=== PATIENT | male | born 1950 | race Caucasian/White ===

== ENCOUNTER 2018-12-25 14:41 | Observation (INO) | payer MEDICARE, SELFPAY ==
[~2018-12-25 14:41] MED LIST: ISOVUE-370 76%-LOCM 1 ML ONE
--- NOTE | 2018-12-25 15:00 | CT ---
CT Brain WO Con History: [Stroke alert] Comparison: None. Findings: Subtle hypodensity anterior limb right internal capsule is small measures approximately 5 m m. No hemorrhage. No large volume territorial infarction. No midline shift or mass effect. The calvarium is intact. The paranasal sinuses and mastoids are clear. Impression: Age-indeterminate small hypodensity anterior limb right internal capsule is age indetermi nant for infarct. MRI may be beneficial if clinically warranted.
[2018-12-25 15:02] LABS: #Eosinphils 0.1 thou/uL (0.0-0.7); #Lymphocytes 1.1 thou/uL (1.20-3.40); #Monocytes 0.3 thou/uL (0.11-0.59); #Neutrophils 2.5 thou/uL (1.40-6.50); %Basophils 0.3 % (0.0-1.0); %Eosinophils 2.2 % (0.0-10.0); %Lymphocytes 27.2 % (21.0-51.0); %Monocytes 6.4 % (0.0-10.0); Hemoglobin 14.7 g/dL (14.0-18.0); Mean Corpuscular HGB CONC 32.5 g/dL (32.0-36.0); Mean Corpuscular Hemoglobin 30.5 pg (27.0-31.0); Mean Corpuscular Volume 93.8 fL (78.0-98.0); Mean Platelet Volume 8.5 fL (7.4-10.4); Platelet Count 173 thou/uL (130-400); RBC Distribution Width 12.2 % (11.5-14.5); Red Blood Cell (RBC) Count 4.84 mill/uL (4.70-6.10)
[2018-12-25 15:07] LABS: INR-International Normal Ratio 1.1; PTT 29.7 SEC (22.9-36.1); Prothrombin Time 14.3 SEC (12.0-14.7)
[2018-12-25 15:15] LABS: ALT (SGPT) Less than 7 U/L (8-55); AST (SGOT) 23 U/L (5-34); Albumin 4.3 g/dL (3.4-4.8); Alkaline Phosphatase 60 U/L (40-150); Anion Gap 12 mmol/L (10-20); BUN (Urea Nitrogen) 12 mg/dL (8.4-25.7); CK (CPK) 228 U/L (30-200); Calc. Creatinine Clearance 0 mL/min (70-130); Calcium 9.4 mg/dL (7.8-10.44); Carbon Dioxide 26 mmol/L (23-31); Chloride 105 mmol/L (98-107); Estimated GFR-MDRD 82; Globulin 2.5 g/dL (2.4-3.5); Glucose 121 mg/dL (80-115); Potassium 3.6 mmol/L (3.5-5.1); Protein, Total 6.8 g/dL (5.8-8.1); Sodium 139 mmol/L (136-145)
--- NOTE | 2018-12-25 15:20 | CT ---
CTA Angio Head W WO Con History: [Stroke alert. Left-sided face tingling in left arm numbness] Comparison: None. Findings: CT angiogram of the head and neck was performed after the intravenous ministration of contr ast. 3-D rendering was provided. The lung apices are clear. Visualized portion of the aorta is nondilated. The thyroid is unremarkable . Moderate degenerative changes throughout the cervical spine. Vessels: The left vertebral artery is dominant. No significant stenosis of the vertebral arteries. Common carotid arteries are patent. No hemodynamically significant stenosis of the internal carotid a rteries per NASCET criteria. [place] is patent. Right P1 is fed by the posterior communicating artery MCAs and ACAs are p atent. No aneurysm. There is a focal 75% narrowing left into branch distal to the trifurcation with adequate distal flow. This is best seen on coronal image 44 Impression: Single focal left M2 75% narrowing coronal image 44. No aneurysm formation. No occlusion. Adequate distal left MCA flow.
[2018-12-25] MEDS ORDERED: Aspirin Chewable 81 MG TAB ONE (16:10)
[2018-12-25] MEDS ORDERED: Acetaminophen 650 MG Suppository PR PRN (18:21)
[2018-12-25] MEDS ORDERED: Ondansetron PF 4 MG/2 ML Vial IVP PRN (18:21)
[2018-12-25] MEDS ORDERED: Senokot S 8.6-50 MG TAB PO PRN (18:21)
[2018-12-25] MEDS ORDERED: Ondansetron ODT 4 MG TAB PO PRN (18:21)
[2018-12-25] MEDS ORDERED: Acetaminophen 325 MG TAB PO PRN (18:21)
--- NOTE | 2018-12-25 23:12 | HP ---
This is HIRAM Olvera dictating a report for Dorcas Wall MD. CHIEF COMPLAINT: Left facial numbness and tingling. 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 He was building a fence at the time that it started. He reports having a right frontal headache on and off for the last couple of days. Reports having some blurred vision earlier today, which has resolved. His symptoms have fully resolved. He reports having some issues with his speech, which he describes as slurring at baseline due to his Parkinson's, but has not noted any facial drooping or facial weakness. No upper or lower extremity weakness. No gait disturbances. He did not have any severe headache today, but does report the previous episodes of headaches in the last few days were worse with sneezing or coughing. He denies having any chest pain, palpitations, or shortness of breath. No recent fevers, chills, or sweats. REVIEW OF SYSTEMS: All other review of systems apart from those mentioned above in HPI are negative. In the ED, he was given 325 mg of aspirin. He underwent a CT of the head, which showed an age indeterminate small hypodensity anterior limb right internal capsule. CT angiogram of the head and neck was notable for single focal left M2 75% narrowing. No aneurysm formation. No occlusion. Adequate distal left MCA flow. Common carotid arteries are patent without any hemodynamically significant stenosis of the internal carotid arteries. PAST MEDICAL HISTORY: 1. Bradycardia for the last several years. 2. Osteoarthritis. 3. Parkinson's disease. 4. Hyperlipidemia. PAST SURGICAL HISTORY: 1. Colonoscopy. 2. Hernia repair in 2005. 3. Orthopedic surgery of the right and left ACL. 4. Left total knee replacement. 5. Lumbar spine surgery. SOCIAL HISTORY: Patient denies any alcohol use, tobacco use, or illicit drug use. He lives at home with his . He is able to mobilize independently, but does have the typical Parkinson's gait. Does not require any assistive devices. ALLERGIES: NO KNOWN DRUG ALLERGIES. CURRENT MEDICATIONS: 1. Azilect. 2. Ropinirole. 3. Carbidopa/levodopa. 4. Tamsulosin. 5. Finasteride. 6. Lipitor. PHYSICAL EXAMINATION: GENERAL: Patient appears well developed, well nourished, and is in no acute distress. VITAL SIGNS: Temperature 97.8, pulse 51, blood pressure 127/65, respirations 20, and O2 saturation 100% on room air. HEENT: Normocephalic and atraumatic. Pupils are equal, round, and reactive to light. Sclerae are without icterus. Oropharynx is clear. NECK: Supple. LUNGS: Clear to auscultation bilaterally without any wheezes, rales, or rhonchi. CARDIAC: Regular rate and rhythm. ABDOMEN: Soft, nontender, and nondistended. Normoactive bowel sounds present. EXTREMITIES: No edema. NEUROLOGIC: Patient is alert and oriented x3. Facial movements normal. Facial sensation intact. Normal sensation throughout all extremities with power 5/5 in all limbs. No focal deficits. He does have resting tremors associated with Parkinson's. LABORATORY DATA: White blood count 4, hemoglobin 14.7, hematocrit 44.4, and platelets . PT 14.3, INR 1.1, and PTT 29.7. Sodium 139, potassium 3.6, BUN 12, creatinine 0.83, GFR 82, glucose 121, calcium , total bilirubin 1.0, AST 23, ALT less than 7, and alkaline phosphatase 60. CK 228, troponin I negative. Albumin 4.3. IMAGING DATA: As mentioned above in HPI. 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 1. Transient ischemic attack. Patient states the left facial numbness and tingling and left arm numbness have fully resolved as his headache and blurred vision. He was given aspirin 325 mg in the ER. We will continue with 81 mg daily. He does not normally take baby aspirin at home. Denies having symptoms like this in the past. CT angiogram did note a 75% stenosis of the left M2. Following discussion with Dr. Wall, he felt this is likely too high up to be addressed surgically. To be further discussed by the day team. Consult has been placed to Neurosurgery. We will continue to monitor. Lipid panel requested. Patient normally on Lipitor 10 mg at night. We have placed him on atorvastatin 20 mg at night. 2. Parkinson's disease. Resume home medications. 3. Bradycardia. Monitor. 4. Deep venous thrombosis prophylaxis. 5. Gastrointestinal prophylaxis. 6. Full code status. His surrogate decision maker is his , Lakeisha Olmos. Patient's case was discussed with Dr. Wall, who agrees with the plan of care as described above. Job ID: [id number]
[2018-12-26 00:44] VITALS: BMI 27.3
[2018-12-26] MEDS ORDERED: Prevnar 13-Val Conj/PF 0.5 ML SYRINGE IM ONE (01:00)
[2018-12-26] MEDS: Atorvastatin Calcium 40 MG TAB PO SCH ×2 (01:17→21:31)
[2018-12-26] MEDS: Carbidopa/Levodopa 25-100 mg Tablet PO SCH ×5 (01:17→21:30)
[2018-12-26] MEDS: Famotidine/PF 20 mg/2ml Vial SLOW IVP SCH ×3 (01:17→21:33)
[2018-12-26] MEDS: Tamsulosin HCl 0.4 MG CAP PO SCH ×2 (01:18→21:30)
[2018-12-26] MEDS: rOPINIRole HCl 2 MG TAB PO SCH ×5 (01:18→21:30)
[2018-12-26 05:08] LABS: #Eosinphils 0.2 thou/uL (0.0-0.7); #Lymphocytes 1.7 thou/uL (1.20-3.40); #Monocytes 0.3 thou/uL (0.11-0.59); %Basophils 1.1 % (0.0-1.0); %Eosinophils 4.6 % (0.0-10.0); %Lymphocytes 38.9 % (21.0-51.0); %Monocytes 7.3 % (0.0-10.0); %Neutrophils 48.1 % (42.0-75.0); Hemoglobin 14.8 g/dL (14.0-18.0); Mean Corpuscular HGB CONC 32.3 g/dL (32.0-36.0); Mean Corpuscular Hemoglobin 30.2 pg (27.0-31.0); Mean Corpuscular Volume 93.5 fL (78.0-98.0); Mean Platelet Volume 8.4 fL (7.4-10.4); Platelet Count 179 thou/uL (130-400); RBC Distribution Width 12.2 % (11.5-14.5); White Blood Cell (WBC) Count 4.2 thou/uL (4.8-10.8)
[2018-12-26 05:31] LABS: Anion Gap 11 mmol/L (10-20); BUN (Urea Nitrogen) 12 mg/dL (8.4-25.7); Calc. Creatinine Clearance 111 mL/min (70-130); Carbon Dioxide 24 mmol/L (23-31); Cardiac Risk 2.8 (Less than 4.5); Chloride 107 mmol/L (98-107); Cholesterol 126 mg/dl (< 200 Desired); Estimated GFR-MDRD Greater than 90; Glucose 90 mg/dL (80-115); HDL Cholesterol 45 mg/dL (>60 Neg Risk); LDL Cholesterol, Calculated 68 mg/dL; Sodium 138 mmol/L (136-145); Triglycerides 67 mg/dL (Less than 150)
[2018-12-26] MEDS ORDERED: Aspirin 81 mg Enteric Coated Tablet PO SCH (09:00)
--- NOTE | 2018-12-26 10:36 | MRI ---
Noncontrast enhanced MRI images brain. HISTORY: Left-sided numbness and tingling. Noncontrast enhanced MRI images brain obtained. Images demonstrate the brain to be unremarkable. No evidence of intracranial masses, hemorrhages, str okes or contusion seen. Ventricles are of normal size. No evidence of areas of diffusion restriction seen. Raff there is asymmetric pneumatization of the left clinoid process. No evidence of intracranial areas of diffusion restriction seen. Normal flow void seen in the major intracranial vessels. IMPRESSION: unremarkable noncontrast enhanced MRI images of the brain.
[2018-12-26] MEDS: Rasagiline Mesylate 0.5 MG TAB PO SCH (11:13)
[2018-12-26] MEDS: Finasteride 5 MG TAB PO SCH (11:14)
--- NOTE | 2018-12-26 16:06 | CT ---
CTA Angio Head W WO Con CTA Angio Neck W WO Con History: [Stroke alert. Left-sided face tingling in left arm numbness] Comparison: None. Findings: CT angiogram of the head and neck was performed after the intravenous ministration of contr ast. 3-D rendering was provided. The lung apices are clear. Visualized portion of the aorta is nondilated. The thyroid is unremarkable . Moderate degenerative changes throughout the cervical spine. Vessels: The left vertebral artery is dominant. No significant stenosis of the vertebral arteries. Common carotid arteries are patent. No hemodynamically significant stenosis of the internal carotid a rteries per NASCET criteria. [place] is patent. Right P1 is fed by the posterior communicating artery MCAs and ACAs are p atent. No aneurysm. There is a focal 75% narrowing left into branch distal to the trifurcation with adequate distal flow. This is best seen on coronal image 44 Impression: Single focal left M2 75% narrowing coronal image 44. No aneurysm formation. No occlusion. Adequate distal left MCA flow. Transcribed Date/Time: 12/26/2018 4:05 PM
--- NOTE | 2018-12-26 17:43 | PDOC.PN ---
- Subjective Encounter Start Date: 12/26/18 Encounter Start Time: 17:40 Patient sitting up in chair, he reports symptoms resolved and he remains at baseline. He denies any further pain, numbness, tingling or weakness. Dr Darden recommending patient continue on aspirin therapy and will follow up with him as outpatient - Objective Resuscitation Status - Order Detail: 12/25/18 18:21 Resuscitation Status Routine Co-Sign Provider: Resuscitation Status: FULL: Full Resuscitation MAR Reviewed: Yes Vital Signs & Weight: Vital Signs (12 hours) Temp Pulse Resp BP Pulse Ox 12/26/18 15:43 97.6 F 58 L 24 H 153/60 H 96 12/26/18 12:00 97.4 F L 81 24 H 106/50 L 95 12/26/18 07:54 96.6 F L 46 L 16 127/60 94 L Weight Weight 195 lb 9.6 oz I&O: 12/25/18 12/26/18 12/27/18 06:59 06:59 06:59 Intake Total 120 Balance 120 Result Diagrams: 12/26/18 04:34 12/26/18 04:33 Radiology Reviewed by me: Yes Phys Exam - Physical Examination Constitutional: NAD HEENT: moist MMs, oral pharynx no lesions Neck: no nodes, supple Respiratory: no wheezing, clear to auscultation bilateral Cardiovascular: RRR, no significant murmur Gastrointestinal: soft, no distention, positive bowel sounds Musculoskeletal: no edema, pulses present Neurological: normal sensation, moves all 4 limbs Lymphatic: no nodes Psychiatric: normal affect, A&O x 3 Skin: no rash, cap refill <2 seconds Dx/Plan (1) TIA (transient ischemic attack) Code(s): G45.9 - TRANSIENT CEREBRAL ISCHEMIC ATTACK, UNSPECIFIED Status: Acute (2) Carotid stenosis Code(s): I65.29 - OCCLUSION AND STENOSIS OF UNSPECIFIED CAROTID ARTERY Status : Acute (3) Parkinson disease Code(s): G20 - PARKINSON'S DISEASE Status: Acute - Plan cont current plan of care, plan discussed w/ family * Continue aspirin and statin at this time * MRI and further workup reviewed and discussed with patient * Recommend repeat carotid imaging in 1 year * He will likely follow up with Dr Darden and PCP as outpatient * Await echo results, if stable will likely discharge home
--- NOTE | 2018-12-26 23:40 | CON ---
DATE OF CONSULTATION: 12/26/2018 CONSULTING PHYSICIAN: Hospitalist Service. IMPRESSION: 1. Possible transient ischemic attack with transient left-sided numbness. 2. 75% left M2 segment internal carotid stenosis. PLAN: 1. Add aspirin 325 mg per day. 2. Continue Lipitor. 3. Office followup of his Parkinson disease. 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 He has had Parkinson's for about 8 years now. He has been on a statin and otherwise has been healthy. He developed acute onset of left face and arm numbness. This lasted about 45 minutes with no associated deficits. 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 CT angiogram showed the left M2 segment 75% stenosis. His cholesterol ratio was 2.8. MRI of the brain did not reveal any evidence of acute ischemic injury. He has never had anything like this before. He denies history of migraine. PAST HISTORY: Parkinson's, hyperlipidemia. SOCIAL HISTORY: No tobacco use. ALLERGIES: NONE. MEDICATIONS: Reviewed. FAMILY HISTORY: Noncontributory. REVIEW OF SYSTEMS: Ten-system review of systems otherwise unremarkable. PHYSICAL EXAMINATION: GENERAL: He is a healthy-appearing man, in no acute distress. VITAL SIGNS: Have been stable. He is afebrile. HEENT: Pupils are equal and reactive. Conjunctivae clear. Oropharynx clear. He has a masked facies. NECK: Supple. EXTREMITIES: No cyanosis. NEUROLOGIC: Alert and appropriate. His speech is fluent, slightly monotone and reduced in volume. Cranial nerves are intact. Motor exam showed good strength bilaterally. His gait is actually quite normal appearing with a normal arm swing. Rapid alternating movements appear to be minimally slowed. No tremor was noted. Sensations intact. EKG showed normal sinus rhythm. Echocardiogram is pending. SUMMARY: Elderly gentleman who presented with some transient neurologic deficits that were quite brief, could be consistent with transient ischemic attack given his vascular disease and antiplatelet therapy. I will be happy to follow up with him in the office. Job ID: [id number]
[2018-12-27 07:58] VITALS: BP 140/68; TEMP 97.5
[2018-12-27] MEDS ORDERED: Aspirin 325 MG TAB PO SCH (09:00)
[2018-12-27] MEDS: Finasteride 5 MG TAB PO SCH (09:23)
[2018-12-27] MEDS: Carbidopa/Levodopa 25-100 mg Tablet PO SCH (09:23)
[2018-12-27] MEDS: rOPINIRole HCl 2 MG TAB PO SCH (09:24)
[2018-12-27] MEDS: Famotidine/PF 20 mg/2ml Vial SLOW IVP SCH (09:25)
[2018-12-27] MEDS: Rasagiline Mesylate 0.5 MG TAB PO SCH (10:47)
== END 2018-12-27 10:45 | disposition home or self-care (01) ==
LOC: ERS 14:41 → 2SE 17:58
PROVIDERS: ADMIT Internal Medicine; ATTEND Internal Medicine
DX: G45.9 Transient cerebral ischemic attack, unspecified (principal); G20 Parkinson's disease; M19.90 Unspecified osteoarthritis, unspecified site; E78.5 Hyperlipidemia, unspecified; R00.1 Bradycardia, unspecified; Z79.899 Other long term (current) drug therapy
CPT/HCPCS: 70450; 70496; 70498; 70551; 80048; 80053; 80061; 82550; 82962; 84484; 85025 ×2; 85610; 85652; 85730; 90670; 93005; 93306; 94760; 96374; 99285; G0009; G0378 ×2; 36415; 36416; 90471; Q9966; S0028